=== PATIENT | male | born 1990 | race African-American/Black ===

== ENCOUNTER 2019-02-10 21:41 | Emergency (ER) | payer BC, OTHER ==
[2019-02-10 21:46] VITALS: BP 126/92
[2019-02-10] MEDS ORDERED: Sodium Chloride 0.9% 10 ML Syringe FLUSH PRN (21:46)
[2019-02-10] MEDS: HYDROmorphone 1 MG/ML Syringe IVPUSH ONE ×2 (21:50→22:01)
[2019-02-10 22:17] LABS: CHLORIDE,CL 103 mmol/L (98-107); SODIUM,NA 142 mmol/L (136-145)
--- NOTE | 2019-02-10 22:33 | EDM.PDOC ---
ED HPI GENERAL MEDICAL PROBLEM - General Chief Complaint: Lower Extremity Injury/Pain Stated Complaint: fell at work and twisted right knee and ankle Time Seen by Provider: 02/10/19 21:45 Source of Information: Reports: Patient History Limitations: Reports: No Limitations - History of Present Illness INITIAL COMMENTS - FREE TEXT/NARRATIVE: Patient is a 28-year-old Som[place] who is seen in the emergency room status post injury to his right knee and distal tib-fib and ankle patient works at [employer] states that he fell hitting his right knee on a tiger Kart patient was brought in for evaluation by security and his boss. At this time he was examined x-rays obtained reveal no fracture back and see we will place him in a knee immobilizer and given crutches for ambulation Onset: Today Duration: Minutes:, Constant (Pain is about 5 out of 10 at this time) Location: Reports: Lower Extremity, Right Quality: Reports: Ache, Sharp Severity: Moderate Improves with: Reports: Cold Therapy, Medication (Diffuse pain medications) Worsens with: Reports: Movement Context: Reports: Trauma Associated Symptoms: Reports: No Other Symptoms Right Lower Knee Pain Score (Numeric/FACES): 6 - Related Data Allergies Allergy/AdvReac Type Severity Reaction Status Date / Time No Known Allergies Allergy Verified 02/10/19 21:43 Home Meds: Home Meds . [No Known Home Meds] 11/10/16 [History] Past Medical History - Past Health History Medical/Surgical History: Denies Medical/Surgical History (Patient is a somewhat poor historian) Social & Family History - Tobacco Use Smoking Status *Q: Never Smoker Second Hand Smoke Exposure: No - Caffeine Use Caffeine Use: Reports: None - Recreational Drug Use Recreational Drug Use: No - Living Situation & Occupation Occupation: Employed Review of Systems - Review of Systems Review Of Systems: ROS reveals no pertinent complaints other than HPI. ED EXAM, GENERAL - Physical Exam Exam: See Below Exam Limited By: No Limitations General Appearance: Alert, WD/WN, No Apparent Distress Ears: Normal External Exam, Normal Canal, Hearing Grossly Normal, Normal TMs Nose: Normal Inspection, Normal Mucosa, No Blood Throat/Mouth: Normal Inspection, Normal Lips, Normal Teeth, Normal Gums, Normal Oropharynx, Normal Voice, No Airway Compromise Head: Atraumatic, Normocephalic Neck: Normal Inspection, Supple, Non-Tender, Full Range of Motion Respiratory/Chest: No Respiratory Distress, Lungs Clear, Normal Breath Sounds, No Accessory Muscle Use, Chest Non-Tender Cardiovascular: Normal Peripheral Pulses, Regular Rate, Rhythm, No Edema, No Gallop, No JVD, No Murmur, No Rub GI/Abdominal: Normal Bowel Sounds, Soft, Non-Tender, No Organomegaly, No Distention, No Abnormal Bruit, No Mass (Male) Exam: Deferred Rectal (Males) Exam: Deferred Back Exam: Normal Inspection, Full Range of Motion, NT Extremities: Joint Swelling, Leg Pain, Limited Range of Motion Neurological: Alert, Oriented, CN II-XII Intact, Normal Cognition, Normal Gait, Normal Reflexes, No Motor/Sensory Deficits Psychiatric: Normal Affect, Normal Mood Course - Vital Signs Last Recorded V/S: Last Vital Signs Temp 98.1 F 02/10/19 21:42 Pulse 80 02/10/19 21:42 Resp 18 02/10/19 21:42 BP 126/92 H 02/10/19 21:42 Pulse Ox 98 02/10/19 21:42 - Orders/Labs/Meds Orders: Active Orders 24 hr Category Date Time Status Ankle Min 3V Bi [CR] Stat Exams 02/10/19 21:49 Ordered Ankle Min 3V Rt [CR] Stat Exams 02/10/19 22:10 Ordered Knee 3V Rt [CR] Stat Exams 02/10/19 21:49 Ordered Sodium Chloride 0.9% [Saline Flush] Med 02/10/19 21:46 Ordered 10 ml FLUSH ASDIRECTED PRN Saline Lock Insert [OM.PC] Stat Oth 02/10/19 21:48 Ordered Medication Orders Sodium Chloride (Saline Flush) 10 ml FLUSH ASDIRECTED PRN PRN Reason: Keep Vein Open Labs: Laboratory Tests 02/10/19 02/10/19 Range/Units 21:59 21:59 WBC 3.8 L (4.0-10.2) K/uL RBC 5.10 (4.33-5.41) M/uL Hgb 15.1 (13.1-16.8) g/dL Hct 42.9 (39.0-49.0) % MCV 84.1 (84.0-98.0) fL MCH 29.6 (28.2-33.3) pg MCHC 35.2 (31.7-36.0) g/dL RDW 12.5 (11.2-14.1) % Plt Count 222 (150-350) K/uL Neut % (Auto) 59.4 (45.0-80.0) % Lymph % (Auto) 27.9 (10.0-50.0) % [place] % (Auto) 8.5 (2.0-14.0) % Eos % (Auto) 3.4 (0.0-5.0) % Baso % (Auto) 0.8 (0.0-2.0) % Neut # (Auto) 2.24 (1.40-7.00) K/uL Lymph # (Auto) 1.05 (0.50-3.50) K/uL [place] # (Auto) 0.32 (0.00-1.00) K/uL Eos # (Auto) 0.13 (0.00-0.50) K/uL Baso # (Auto) 0.03 (0.00-0.20) K/uL Sodium 142 (136-145) mmol/L Potassium 4.1 (3.5-5.1) mmol/L Chloride 103 (98-107) mmol/L Carbon Dioxide 28.9 (21.0-32.0) mmol/L BUN 9 (7-18) mg/dL Creatinine 1.12 (0.51-1.17) mg/dL Est Cr Clr Drug Dosing 102.72 mL/min Estimated GFR (MDRD) > 60 mL/min Glucose 83 (74-106) mg/dL Calcium 8.8 (8.5-10.1) mg/dL Meds: Medications Generic Name Dose Route Start Last Admin Trade Name Freq PRN Reason Stop Dose Admin Sodium Chloride 10 ml 02/10/19 21:46 Saline Flush FLUSH ASDIRECTED PRN Keep Vein Open Discontinued Medications Generic Name Dose Route Start Last Admin Trade Name Freq PRN Reason Stop Dose Admin Hydromorphone HCl 1 mg 02/10/19 21:48 Dilaudid IVPUSH 02/10/19 21:49 ONETIME ONE Departure - Departure Time of Disposition: 22:37 Disposition: Home, Self-Care 01 Condition: Fair Clinical Impression: Ankle pain, right, Right knee pain, Contusion of knee - Discharge Information *PRESCRIPTION DRUG MONITORING PROGRAM REVIEWED*: No *COPY OF PRESCRIPTION DRUG MONITORING REPORT IN PATIENT YESSENIA: No Instructions: Knee Pain, Adult, Ankle Sprain, [id number] Care Plan Goals: Patient will plate be placed on a knee immobilizer given Motrin for pain follow- up with me in a week will send him back to work Wednesday if patient is not better then we will prolong his return to work for another week patient is twice his knee 20 minutes on and 20 minutes off and uses crutches for ambulation - My Orders Last 24 Hours: My Active Orders 02/10/19 21:46 Sodium Chloride 0.9% [Saline Flush] 10 ml FLUSH ASDIRECTED PRN 02/10/19 21:48 Saline Lock Insert [OM.PC] Stat 02/10/19 21:49 Ankle Min 3V Bi [CR] Stat Knee 3V Rt [CR] Stat 02/10/19 22:10 Ankle Min 3V Rt [CR] Stat - Assessment/Plan Last 24 Hours: My Active Orders 02/10/19 21:46 Sodium Chloride 0.9% [Saline Flush] 10 ml FLUSH ASDIRECTED PRN 02/10/19 21:48 Saline Lock Insert [OM.PC] Stat 02/10/19 21:49 Ankle Min 3V Bi [CR] Stat Knee 3V Rt [CR] Stat 02/10/19 22:10 Ankle Min 3V Rt [CR] Stat
== END 2019-02-10 23:00 | disposition home or self-care (01) ==
LOC: LL.ED 21:41
DX: S80.01XA Contusion of right knee, initial encounter (principal); M25.571 Pain in right ankle and joints of right foot; W22.8XXA Striking against or struck by other objects, initial encounter
CPT/HCPCS: 36415; 73562-RT; 73610-RT; 80048; 85025; 99284-25; J1170